=== PATIENT | female | born 1945 | race American Indian/Alaskan Native ===

== ENCOUNTER 2018-01-08 21:00 | Emergency (ER) | payer MEDICARE ==
[2018-01-08 21:25] VITALS: BP 131/78; PULSE 109; RESP 20; TEMP 98.9; O2SAT 100
--- NOTE | 2018-01-08 22:51 | C.PDOC ---
History Of Present Illness 72 year old female presents to the ED c/o lower back pain. Patient reports that today she accidentally stepped on a pothole, and twisted her back to keep self from falling. Patient denies LOC, headache, head injury, visual changes, bowel incontinence, saddle anesthesia, weakness, numbness. Time Seen by Provider: 01/08/18 21:26 Chief Complaint (Nursing): Back Pain History Per: Patient History/Exam Limitations: no limitations Onset/Duration Of Symptoms: Hrs Current Symptoms Are (Timing): Still Present Quality Of Discomfort: "Pain" Severity: None Recent travel outside of the [place]: No Additional History Per: Patient Past Medical History Reviewed: Historical Data, Nursing Documentation, Vital Signs Vital Signs: Last Vital Signs Temp 98.9 F 01/08/18 21:20 Pulse 109 H 01/08/18 21:20 Resp 20 01/08/18 21:20 BP 131/78 01/08/18 21:20 Pulse Ox 100 01/08/18 21:20 - Medical History PMH: No Chronic Diseases Surgical History: Appendectomy (1968) Family History: States: Unknown Family Hx - Social History Hx Alcohol Use: No Hx Substance Use: No - Immunization History Hx Tetanus Toxoid Vaccination: No Hx Influenza Vaccination: No Hx Pneumococcal Vaccination: No Review Of Systems Constitutional: Negative for: Fever, Chills Eyes: Negative for: Vision Change Cardiovascular: Negative for: Chest Pain Gastrointestinal: Negative for: Nausea, Vomiting, Abdominal Pain Genitourinary: Negative for: Incontinence Musculoskeletal: Positive for: Back Pain. Negative for: Leg Pain Skin: Negative for: Rash Neurological: Negative for: Weakness, Numbness Physical Exam - Physical Exam Appears: Non-toxic, No Acute Distress Skin: Normal Color, Warm, Dry Head: Atraumatic, Normacephalic Eye(s): bilateral: Normal Inspection Neck: Normal ROM, Supple Chest: Symmetrical Cardiovascular: Rhythm Regular Respiratory: Normal Breath Sounds, No Rales, No Rhonchi, No Wheezing Gastrointestinal/Abdominal: Soft, No Tenderness, No Guarding, No Rebound Back: Paraspinal Tenderness (right lumbar), No Straight Leg Raising, Other (r ight lumbar spine tenderness) Extremity: Normal ROM, No Tenderness, No Swelling Neurological/Psych: Oriented x3, Normal Speech, Normal Cognition, Normal Motor, Normal Sensation Gait: Steady ED Course And Treatment O2 Sat by Pulse Oximetry: 100 (ON RA) Pulse Ox Interpretation: Normal - Other Rad LS spine X-Ray X-Ray: Interpreted by Me, Viewed By Me Interpretation: No fracture or dislocation Progress Note: Plan: - Motrin 600 mg PO. - LS spine X-Ray. On reassessment, patient is resting comfortably, with improvement of back pain. Patient remains afebrile, with no bony tenderness, extremity numbness or weakness, or abdominal pain. Patient is ambulatory in the emergency department with no signs of discomfort. Patient was advised to follow up with physician/clinic in 1-2 days. 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 - Scribe Statement The provider has reviewed the documentation as recorded by the Scribe Yao Armstrong All medical record entries made by the Scribe were at my direction and personally dictated by me. I have reviewed the chart and agree that the record accurately reflects my personal performance of the history, physical exam, medical decision making, and the department course for this patient. I have also personally directed, reviewed, and agree with the discharge instructions and disposition.
--- NOTE | 2018-01-09 16:52 | RAD ---
Date of service: 01/08/2018 PROCEDURE: Radiographs of the Lumbar Spine. HISTORY: pain, fall COMPARISON: No prior. FINDINGS: BONES: Normal alignment. No listhesis. No fracture. DISC SPACES: Minor multilevel degenerative spondylosis with small marginal anterolateral osteophytes. Facets are mildly hypertrophic from L5-S1 through the L1-L2 levels in decreasing order of severity.. Disc space heights maintained OTHER FINDINGS: None. IMPRESSION: No acute fractures. Mild multilevel degenerative spondylosis although disc space heights are maintained as detailed above
== END 2018-01-08 22:54 | disposition home or self-care (01) ==
LOC: C.ER 21:00
DX: S39.012A Strain of muscle, fascia and tendon of lower back, initial encounter (principal); W17.2XXA Fall into hole, initial encounter; Y92.89 Other specified places as the place of occurrence of the external cause

== ENCOUNTER 2018-04-21 10:33 | Outpatient (CLI) | payer MEDICARE | END 2018-04-21 10:34 | disposition home or self-care (01) | LOC: C.DEXAIC 10:33 | DX: M81.0 Age-related osteoporosis without current pathological fracture (principal); R07.9 Chest pain, unspecified ==

== ENCOUNTER 2018-06-15 06:09 | Day surgery (SDC) | payer MEDICARE ==
[2018-06-14 10:16] VITALS: BMI 23.6
--- NOTE | 2018-06-15 07:26 | CP.SDSHP ---
Same Day Surgery H & P - History Proposed Procedure: colonoscopy Pre-Op Diagnosis: screening for colon cancer - Previous Medical/Surgical History Endocrine/Metabolic: Diabetes Previous Surgical History: appendix. breast cyst - Allergies Allergies: Allergies acetaminophen [From Tylenol-Codeine] Allergy (Verified 06/14/18 10:15) RASH amoxicillin [From Amoxil] Allergy (Verified 06/14/18 10:15) RASH aspirin [From Norgesic] Allergy (Verified 06/15/18 06:53) NAUSEA caffeine [From Norgesic] Allergy (Verified 06/15/18 06:53) NAUSEA codeine [From Tylenol-Codeine] Allergy (Verified 06/14/18 10:15) RASH orphenadrine [From Norgesic] Allergy (Verified 06/15/18 06:53) NAUSEA Penicillins Allergy (Verified 06/14/18 10:15) ANAPHYLAXIS sulfamethoxazole [From Septra] Allergy (Verified 06/15/18 06:53) DIARRHEA Tetracyclines Allergy (Verified 06/15/18 06:53) DIARRHEA trimethoprim [From Septra] Allergy (Verified 06/15/18 06:53) DIARRHEA - Physical Exam Vital Signs: Vital Signs 06/15/18 06:33 Temperature 98.6 F Pulse Rate 80 Respiratory 20 Rate Blood Pressure 139/71 O2 Sat by Pulse 99 Oximetry Mental Status: Alert & Oriented x3 Neuro: WNL Heart: WNL Lungs: WNL GI: WNL - Impression Impression: screening for colon cancer Pt. Evaluated Today:Candidate for Anesthesia & Procedure: Yes - Date & Time Date: 06/15/18 Time: 07:26 Short Stay Discharge - Short Stay Discharge Admitting Diagnosis/Reason for Visit: ENCOUNTER FOR SCREENING Disposition: HOME/ ROUTINE
[2018-06-15] MEDS ORDERED: Propofol 10 mg/ml Inj (20 ML) ONE (07:39)
[2018-06-15 08:41] VITALS: TEMP 97.3
[2018-06-15 08:47] VITALS: BP 128/70; PULSE 78; RESP 20; O2SAT 99
== END 2018-06-15 09:15 | disposition home or self-care (01) ==
LOC: C.ENDO 06:09
PROVIDERS: ATTEND Internal Medicine Gastroenterology
DX: D12.3 Benign neoplasm of transverse colon (principal); Z12.11 Encounter for screening for malignant neoplasm of colon; E11.9 Type 2 diabetes mellitus without complications; Z88.0 Allergy status to penicillin; K64.8 Other hemorrhoids; K64.1 Second degree hemorrhoids
CPT/HCPCS: 45380; 88305; J2001; J2704